=== PATIENT | female | born 1945 | race African-American/Black ===

== ENCOUNTER 2017-12-29 16:39 | Emergency (ER) | payer MEDICARE, BC ==
[~2017-12-29] VITALS: Ht 165.1 cm; Wt 107.0 kg
[~2017-12-29 16:39] MED LIST: AMLO10TA80 PO; BENA20TA3 PO; EDARBI PO; FEXO1TAB7 PO; FLUT1DIS3 IH; JANUMET XR PO; [UNRECOGNIZED DRUG - OTHER] PO; [UNRECOGNIZED DRUG - REMARK] NAS
[2017-12-29 18:44] LABS: BASOPHILS % 0.8 % (0.0-2.0); EOSINOPHILS % 1.6 % (0.0-5.0); HEMATOCRIT. 35.9 % (36.0-48.0); HEMOGLOBIN. 11.5 g/dL (12.0-16.0); LYMPHOCYTES % 20.3 % (20.0-50.0); MEAN CORPUSCULAR HEMOGLOBIN 27.9 pg (28.0-32.0); MEAN CORPUSCULAR VOLUME 87.1 fL (81.0-99.0); MEAN PLATELET VOLUME 8.1 fl (7.4-10.4); MONOCYTES % 8.4 % (2.0-8.0); NEUTROPHILS % 68.9 % (40.0-76.0); PLATELET 424 x1000/uL (130-400); RED BLOOD CELL COUNT 4.12 mill/uL (4.2-5.4); RED CELL DISTRIBUTION WIDTH 14.9 % (11.6-14.6)
[2017-12-29 18:49] LABS: PROTHROMBIN TIME 10.5 sec (9.4-11.6)
[2017-12-29 21:10] LABS: CREATINE KINASE 94 IU/L (26-192)
[2017-12-29] MEDS ORDERED: KETOROLAC 60MG/2ML VIAL IM ONE (21:15)
[2017-12-29 23:19] LABS: CLARITY URINE CLEAR (CLEAR); COLOR URINE YELLOW (YELLOW); KETONES URINE TRACE (NEGATIVE); LEUKOCYTE ESTERASE URINE TRACE (NEGATIVE); NITRITE URINE NEGATIVE (NEGATIVE); OCCULT BLOOD URINE NEGATIVE (NEGATIVE); PROTEIN URINE NEGATIVE (NEGATIVE); SPECIFIC GRAVITY URINE 1.025 (1.005-1.030); UROBILINOGEN URINE 0.2 E.U./dL (0.2-1.0)
[2017-12-30 00:50] VITALS: BP 134/66
== END 2017-12-30 01:15 | disposition home or self-care (01) ==
LOC: ER 17:38
DX: M79.1 Myalgia (principal); R39.11 Hesitancy of micturition; J45.909 Unspecified asthma, uncomplicated; E11.9 Type 2 diabetes mellitus without complications; I10 Essential (primary) hypertension; D72.829 Elevated white blood cell count, unspecified; Z88.6 Allergy status to analgesic agent; Z91.09 Other allergy status, other than to drugs and biological substances
CPT/HCPCS: 36415; 80048; 81003; 82550; 85025; 85610; 96372; 99284; J1885

== ENCOUNTER 2018-09-03 13:21 | Inpatient (IN) | payer BC, MEDICARE ==
[~2018-09-03] VITALS: Ht 165.1 cm; Wt 108.0 kg
[~2018-09-03 13:21] MED LIST changes: +BENA20TA10 PO; -BENA20TA3 PO
[2018-09-03] MEDS ORDERED: MORPHINE SULFATE 4 MG/ML CPJ (NOT FOR IM USE) IV STA (15:17)
[2018-09-03] MEDS ORDERED: ONDANSETRON HCL 4MG/2ML INJ IV STA (15:17)
[2018-09-03 16:27] LABS: BASOPHILS % 0.5 % (0.0-2.0); EOSINOPHILS % 1.3 % (0.0-5.0); HEMATOCRIT. 42.5 % (36.0-48.0); HEMOGLOBIN. 13.4 g/dL (12.0-16.0); LYMPHOCYTES % 23.4 % (20.0-50.0); MEAN CORPUSCULAR VOLUME 85.6 fL (81.0-99.0); MEAN PLATELET VOLUME 8.6 fl (7.4-10.4); MONOCYTES % 8.3 % (2.0-8.0); NEUTROPHILS % 66.5 % (40.0-76.0); PLATELET 405 x1000/uL (130-400); RED BLOOD CELL COUNT 4.97 mill/uL (4.2-5.4); RED CELL DISTRIBUTION WIDTH 16.8 % (11.6-14.6)
[2018-09-03 16:35] LABS: CHLORIDE 107 mEq/L (98-107)
[2018-09-03 16:36] LABS: PARTIAL THROMBOPLASTIN TIME 27.4 sec (23.4-31.0); PROTHROMBIN TIME 9.9 sec (9.1-11.1)
[2018-09-03 16:39] LABS: ETHANOL BLOOD < 10 mg/dL
[2018-09-03 18:05] LABS: T4 FREE 0.91 ng/dL (0.76-1.46)
[2018-09-03 23:30] VITALS: BP 161/62
[2018-09-04] VITALS: BP 161/62
[2018-09-04] MEDS ORDERED: MONT10TA24 PO (01:20)
[2018-09-04] MEDS ORDERED: AMLO-79 PO (01:20)
[2018-09-04] MEDS ORDERED: LORA10TA7 PO (01:20)
[2018-09-04] MEDS ORDERED: MECL-109 PO (01:20)
[2018-09-04] MEDS ORDERED: FLUC200T51 PO (01:20)
[2018-09-04] MEDS ORDERED: GLIM4TAB2 PO (01:20)
[2018-09-04] MEDS ORDERED: DULO60CA63 PO (01:20)
[2018-09-04] MEDS ORDERED: ATOR40TA70 PO (01:20)
[2018-09-04] MEDS ORDERED: SPIR25TA6 PO (01:20)
[2018-09-04] MEDS ORDERED: NYST15OI2 TP (01:20)
[2018-09-04] MEDS ORDERED: ISOS1TAB PO (01:20)
[2018-09-04] MEDS ORDERED: GABA-531 PO (01:20)
[2018-09-04] MEDS ORDERED: DEXTROSE 50% WATER 50ML SYRINGE IV PRN (03:15)
[2018-09-04 04:00] VITALS: BP 128/52
[2018-09-04] MEDS: BLOOD SUGAR DIAGNOSTIC STRIP TEST SCH ×4 (06:34→20:09)
[2018-09-04] MEDS: FLUTICASONE PROPIONATE 50MCG/SPRAY BOTTLE BOTHNSTRLS SCH ×3 (06:34→13:53)
[2018-09-04] MEDS: DEXT 5%/LACTATED RINGERS 1,000 ML IV SCH ×2 (06:35→15:42)
[2018-09-04 08:00] VITALS: BP 136/61
[2018-09-04] MEDS: INSULIN LISPRO 100 UNITS/ML SUBCUT SCH ×4 (08:10→21:00)
[2018-09-04] MEDS ORDERED: GABAPENTIN 300MG CAPSULE PO SCH (09:00)
[2018-09-04 09:31] LABS: BASOPHILS % 0.4 % (0.0-2.0); EOSINOPHILS % 2.4 % (0.0-5.0); HEMOGLOBIN. 12.5 g/dL (12.0-16.0); LYMPHOCYTES % 28.3 % (20.0-50.0); MEAN CORPUSCULAR HEMOGLOBIN 26.9 pg (28.0-32.0); MEAN CORPUSCULAR VOLUME 86.4 fL (81.0-99.0); MEAN PLATELET VOLUME 8.4 fl (7.4-10.4); MONOCYTES % 10.5 % (2.0-8.0); NEUTROPHILS % 58.4 % (40.0-76.0); PLATELET 351 x1000/uL (130-400); RED BLOOD CELL COUNT 4.63 mill/uL (4.2-5.4); RED CELL DISTRIBUTION WIDTH 16.6 % (11.6-14.6)
[2018-09-04 09:40] LABS: CHLORIDE 109 mEq/L (98-107)
[2018-09-04 12:00] VITALS: BP 126/51
[2018-09-04] MEDS ORDERED: ALBUTEROL (0.083%) 2.5MG/3ML NEB HHN PRN (13:00)
[2018-09-04] MEDS ORDERED: SODIUM CHLORIDE 45ML SPRAY NS PRN (13:00)
[2018-09-04] MEDS: LIDOCAINE 5% PATCH TOP SCH (13:52)
[2018-09-04 13:56] LABS: BG BASE EXCESS 0.8 mmol/L (-2.0-2.0); BG CARBOXYHEMOGLOBIN 0.6 % (0.5-1.5); BG DEOXYHEMOGLOBIN 8.3 % (0.0-5.0); BG FRACTION INSPIRED OXYGEN 21; BG HCO3 ACT 26.8 mmol/L (22.0-26.0); BG METHEMOGLOBIN 0.2 % (0.0-1.5); BG OXYGEN SATURATION 91.6 % (92.0-98.5); BG OXYHEMOGLOBIN 90.9 % (94.0-97.0); BG PCO2 48.3 mmHg (35.0-45.0); BG PH 7.362 (7.350-7.450); BG PO2 65.8 mmHg (75.0-100.0); BG SAMPLE SITE RIGHT RADIAL; BG TOTAL HEMOGLOBIN 12.7 g/dL (12.0-18.0); BG VENT MODE ROOM AIR
[2018-09-04] MEDS: OXYMETAZOLINE HCL NASAL SPRAY 15ML BOTHNSTRLS SCH ×2 (14:00→20:08)
[2018-09-04] MEDS: GABAPENTIN 400MG CAPSULE PO SCH ×2 (14:32→22:10)
[2018-09-04 16:00] VITALS: BP 146/59
[2018-09-04] MEDS: IPRATROPIUM/ALBUTEROL 0.5-3(2.5)MG/3ML NEB HHN SCH ×2 (16:33→22:01)
[2018-09-04 20:00] VITALS: BP 141/49
[2018-09-04] MEDS ORDERED: IPRATROPIUM/ALBUTEROL 0.5-3(2.5)MG/3ML NEB HHN PRN (21:00)
[2018-09-04] MEDS ORDERED: ENOXAPARIN 40MG/0.4ML SYR SUBCUT ONE (21:30)
[2018-09-04] MEDS: ENOXAPARIN 30MG/0.3ML SYR SUBCUT SCH (22:10)
[2018-09-05] VITALS: BP 150/47
[2018-09-05 04:00] VITALS: BP 142/54
[2018-09-05] MEDS: DEXT 5%/LACTATED RINGERS 1,000 ML IV SCH ×2 (04:48→16:28)
[2018-09-05] MEDS: BLOOD SUGAR DIAGNOSTIC STRIP TEST SCH ×4 (05:53→21:36)
[2018-09-05] MEDS: GABAPENTIN 400MG CAPSULE PO SCH ×3 (05:53→21:36)
[2018-09-05 07:27] LABS: CHLORIDE 107 mEq/L (98-107)
[2018-09-05 07:53] LABS: BASOPHILS % 0.3 % (0.0-2.0); EOSINOPHILS % 2.5 % (0.0-5.0); HEMATOCRIT. 38.7 % (36.0-48.0); HEMOGLOBIN. 12.1 g/dL (12.0-16.0); LYMPHOCYTES % 28.7 % (20.0-50.0); MEAN CORPUSCULAR HEMOGLOBIN 27.2 pg (28.0-32.0); MEAN CORPUSCULAR VOLUME 87.1 fL (81.0-99.0); MEAN PLATELET VOLUME 8.6 fl (7.4-10.4); MONOCYTES % 9.5 % (2.0-8.0); PLATELET 342 x1000/uL (130-400); RED BLOOD CELL COUNT 4.44 mill/uL (4.2-5.4); RED CELL DISTRIBUTION WIDTH 16.5 % (11.6-14.6)
[2018-09-05 08:00] VITALS: BP 152/75
[2018-09-05] MEDS: INSULIN LISPRO 100 UNITS/ML SUBCUT SCH ×4 (08:10→21:00)
[2018-09-05] MEDS: LINAGLIPTIN 5MG TABLET PO SCH (08:49)
[2018-09-05] MEDS: ENOXAPARIN 30MG/0.3ML SYR SUBCUT SCH ×2 (08:49→21:00)
[2018-09-05] MEDS ORDERED: ENOXAPARIN 40MG/0.4ML SYR SUBCUT SCH (09:00)
[2018-09-05] MEDS: IPRATROPIUM/ALBUTEROL 0.5-3(2.5)MG/3ML NEB HHN SCH ×5 (09:03→21:44)
[2018-09-05] MEDS: FLUTICASONE PROPIONATE 50MCG/SPRAY BOTTLE BOTHNSTRLS SCH (09:05)
[2018-09-05] MEDS: LIDOCAINE 5% PATCH TOP SCH ×2 (09:05→09:06)
[2018-09-05] MEDS: OXYMETAZOLINE HCL NASAL SPRAY 15ML BOTHNSTRLS SCH ×2 (09:05→21:36)
[2018-09-05] MEDS: TRAMADOL 50MG TABLET PO PRN (11:25)
[2018-09-05 12:00] VITALS: BP 148/75
[2018-09-05] MEDS: AMLODIPINE 5MG TABLET PO SCH ×2 (12:18→21:36)
[2018-09-05 16:00] VITALS: BP 155/72
[2018-09-05] MEDS ORDERED: HYDRALAZINE HCL 50MG TABLET PO NR (18:00)
[2018-09-05 20:00] VITALS: BP 160/56
[2018-09-05] MEDS: HYDRALAZINE HCL 50MG TABLET PO SCH (21:35)
[2018-09-06] VITALS (13 sets, daily range): BP systolic 124–204; BP diastolic 50–89
[2018-09-06] MEDS: TRAMADOL 50MG TABLET PO PRN (01:16)
[2018-09-06] MEDS: HYDRALAZINE HCL 50MG TABLET PO SCH (05:23)
[2018-09-06] MEDS: DEXT 5%/LACTATED RINGERS 1,000 ML IV SCH (05:23)
[2018-09-06] MEDS: GABAPENTIN 400MG CAPSULE PO SCH ×3 (05:23→21:14)
[2018-09-06] MEDS: BLOOD SUGAR DIAGNOSTIC STRIP TEST SCH ×4 (05:47→21:16)
[2018-09-06] MEDS: INSULIN LISPRO 100 UNITS/ML SUBCUT SCH ×4 (08:10→21:00)
[2018-09-06] MEDS: IPRATROPIUM/ALBUTEROL 0.5-3(2.5)MG/3ML NEB HHN SCH ×3 (08:38→21:18)
[2018-09-06] MEDS: ENOXAPARIN 30MG/0.3ML SYR SUBCUT SCH ×2 (09:00→21:14)
[2018-09-06] MEDS: LIDOCAINE 5% PATCH TOP SCH ×2 (09:00→09:49)
[2018-09-06] MEDS: LINAGLIPTIN 5MG TABLET PO SCH (09:45)
[2018-09-06] MEDS: AMLODIPINE 5MG TABLET PO SCH ×2 (09:45→21:15)
[2018-09-06] MEDS: FLUTICASONE PROPIONATE 50MCG/SPRAY BOTTLE BOTHNSTRLS SCH (09:50)
[2018-09-06] MEDS: OXYMETAZOLINE HCL NASAL SPRAY 15ML BOTHNSTRLS SCH ×2 (09:55→21:15)
[2018-09-06] MEDS ORDERED: SODIUM CHLORIDE 0.9% 10ML VIAL ONE (11:16)
[2018-09-06] MEDS ORDERED: SODIUM BICARBONATE 4% (2.4MEQ) 5ML VIAL IV ONE (11:17)
[2018-09-06] MEDS ORDERED: LIDOCAINE HCL 1% 20ML VIAL (Pyxis) INJ ONE (11:17)
[2018-09-06 11:29] LABS: BASOPHILS % 0.4 % (0.0-2.0); EOSINOPHILS % 2.7 % (0.0-5.0); HEMOGLOBIN. 12.1 g/dL (12.0-16.0); LYMPHOCYTES % 29.1 % (20.0-50.0); MEAN CORPUSCULAR HEMOGLOBIN 27.3 pg (28.0-32.0); MEAN CORPUSCULAR VOLUME 85.6 fL (81.0-99.0); MEAN PLATELET VOLUME 8.7 fl (7.4-10.4); MONOCYTES % 10.8 % (2.0-8.0); PLATELET 358 x1000/uL (130-400); RED BLOOD CELL COUNT 4.44 mill/uL (4.2-5.4); RED CELL DISTRIBUTION WIDTH 16.6 % (11.6-14.6)
[2018-09-06 11:34] LABS: CHLORIDE 105 mEq/L (98-107)
[2018-09-06] MEDS ORDERED: FENTANYL CITRATE/PF 50MCG/ML 2ML VIAL ONE (12:12)
[2018-09-06] MEDS ORDERED: FENTANYL CITRATE/PF 50MCG/ML 2ML VIAL IV ONE (12:30)
[2018-09-06] MEDS ORDERED: HYDRALAZINE HCL 100MG TABLET PO SCH (14:00)
[2018-09-06] MEDS: ISOSORB DINIT/HYDRALAZINE HCL 20/37.5MG TABLET PO SCH ×2 (14:01→21:15)
[2018-09-06] MEDS: LISINOPRIL 20MG TABLET PO SCH (21:15)
[2018-09-07] VITALS: BP 142/46
[2018-09-07 04:00] VITALS: BP 104/43
[2018-09-07] MEDS: DEXT 5%/LACTATED RINGERS 1,000 ML IV SCH (05:26)
[2018-09-07] MEDS: GABAPENTIN 400MG CAPSULE PO SCH ×2 (05:26→15:29)
[2018-09-07] MEDS: ISOSORB DINIT/HYDRALAZINE HCL 20/37.5MG TABLET PO SCH ×2 (05:27→15:29)
[2018-09-07] MEDS: TRAMADOL 50MG TABLET PO PRN (05:39)
[2018-09-07] MEDS: BLOOD SUGAR DIAGNOSTIC STRIP TEST SCH ×2 (06:54→12:40)
[2018-09-07 08:00] VITALS: BP 112/61
[2018-09-07] MEDS: INSULIN LISPRO 100 UNITS/ML SUBCUT SCH ×2 (08:10→13:10)
[2018-09-07] MEDS: LIDOCAINE 5% PATCH TOP SCH ×2 (09:00→09:05)
[2018-09-07] MEDS: LINAGLIPTIN 5MG TABLET PO SCH (09:02)
[2018-09-07] MEDS: AMLODIPINE 5MG TABLET PO SCH (09:03)
[2018-09-07] MEDS: LISINOPRIL 20MG TABLET PO SCH (09:03)
[2018-09-07] MEDS: ENOXAPARIN 30MG/0.3ML SYR SUBCUT SCH (09:04)
[2018-09-07] MEDS: FLUTICASONE PROPIONATE 50MCG/SPRAY BOTTLE BOTHNSTRLS SCH (09:04)
[2018-09-07] MEDS: IPRATROPIUM/ALBUTEROL 0.5-3(2.5)MG/3ML NEB HHN SCH ×2 (09:20→12:45)
[2018-09-07 09:36] VITALS: BP 112/61
[2018-09-07 12:00] VITALS: BP 149/54
[2018-09-07 13:28] LABS: BASOPHILS % 0.5 % (0.0-2.0); EOSINOPHILS % 2.4 % (0.0-5.0); HEMATOCRIT. 37.3 % (36.0-48.0); HEMOGLOBIN. 11.8 g/dL (12.0-16.0); LYMPHOCYTES % 25.6 % (20.0-50.0); MEAN CORPUSCULAR VOLUME 85.4 fL (81.0-99.0); MEAN PLATELET VOLUME 8.7 fl (7.4-10.4); MONOCYTES % 11.3 % (2.0-8.0); NEUTROPHILS % 60.2 % (40.0-76.0); PLATELET 350 x1000/uL (130-400); RED BLOOD CELL COUNT 4.36 mill/uL (4.2-5.4); RED CELL DISTRIBUTION WIDTH 16.1 % (11.6-14.6)
[2018-09-07 16:00] VITALS: BP 119/55
== END 2018-09-07 17:00 | disposition home or self-care (01) | DRG 477 ==
LOC: ER 13:53 → 7WST 19:47 → EDBEDREQTM 19:52 → EDBEDREQ 19:52 → ENRESERV 21:09
PROVIDERS: ADMIT Internal Medicine Geriatric Medicine; ATTEND Internal Medicine Geriatric Medicine
PROC: 5A09357 Assistance with Respiratory Ventilation, Less than 24 Consecutive Hours, Continuous Positive Airway Pressure (ICD-10-PCS; 2018-09-04)
PROC: 0Q903ZX Drainage of Lumbar Vertebra, Percutaneous Approach, Diagnostic (ICD-10-PCS; principal; 2018-09-06)
PROC: 5A09357 Assistance with Respiratory Ventilation, Less than 24 Consecutive Hours, Continuous Positive Airway Pressure (ICD-10-PCS; 2018-09-06)
PROC: 5A09357 Assistance with Respiratory Ventilation, Less than 24 Consecutive Hours, Continuous Positive Airway Pressure (ICD-10-PCS; 2018-09-07)
DX: M46.26 Osteomyelitis of vertebra, lumbar region (principal); G06.1 Intraspinal abscess and granuloma; M51.17 Intervertebral disc disorders with radiculopathy, lumbosacral region; E11.69 Type 2 diabetes mellitus with other specified complication; M48.061 Spinal stenosis, lumbar region without neurogenic claudication; G89.29 Other chronic pain; J44.9 Chronic obstructive pulmonary disease, unspecified; J31.0 Chronic rhinitis; I25.10 Atherosclerotic heart disease of native coronary artery without angina pectoris; E11.40 Type 2 diabetes mellitus with diabetic neuropathy, unspecified; E66.01 Morbid (severe) obesity due to excess calories; G47.33 Obstructive sleep apnea (adult) (pediatric); J32.9 Chronic sinusitis, unspecified; M46.46 Discitis, unspecified, lumbar region; E78.5 Hyperlipidemia, unspecified; I10 Essential (primary) hypertension; E89.0 Postprocedural hypothyroidism; K21.9 Gastro-esophageal reflux disease without esophagitis; Z82.49 Family history of ischemic heart disease and other diseases of the circulatory system; Z83.3 Family history of diabetes mellitus; Z86.73 Personal history of transient ischemic attack (TIA), and cerebral infarction without residual deficits; Z91.19 Patient's noncompliance with other medical treatment and regimen; Z88.8 Allergy status to other drugs, medicaments and biological substances; Z79.899 Other long term (current) drug therapy; Z68.39 Body mass index [BMI] 39.0-39.9, adult
CPT/HCPCS: 36415; 36600; 71045; 72158; 77002; 80048; 82375; 82805; 82962; 83605; 83880; 84145; 84439; 84443; 84481; 84484; 85651; 87075; 87102; 87116; 93005; 93306; 94640; 94660; 96374; 96375; 99152; 99153; 99285; A9577; J1650; J2270; J2405; J3010; J3490; J7050; J7121; J7620; G0500

== ENCOUNTER 2018-10-20 06:12 | Inpatient (IN) | payer BC ==
[2018-10-20] VITALS (35 sets, daily range): BP systolic 101–154; BP diastolic 51–94
[~2018-10-20] VITALS: Ht 167.6 cm; Wt 112.0 kg
[~2018-10-20 06:12] MED LIST changes: +AMLO-79 PO; +ATOR40TA70 PO; +DULO60CA63 PO; +FLUC200T51 PO; +GABA-531 PO; +GLIM4TAB2 PO; +ISOS1TAB PO; +LORA10TA7 PO; +MECL-109 PO; +MONT10TA24 PO; +NYST15OI2 TP; +SPIR25TA6 PO
[2018-10-20] MEDS ORDERED: GELATIN SPONGE,ABSORBABLE 12-7MM SPONGE ONE ×2 (06:26→08:10)
[2018-10-20] MEDS ORDERED: THROMBIN (BOVINE) 5000 UNITS/VIAL TOP ONE ×2 (06:26→08:11)
[2018-10-20] MEDS ORDERED: LIDOCAINE HCL/EPINEPHRINE 1%-EPI 1:100,000 20 ML VIAL ONE ×2 (06:27→08:11)
[2018-10-20] MEDS ORDERED: BACITRACIN 50,000 UNITS/VIAL ONE ×2 (06:27→08:11)
[2018-10-20] MEDS ORDERED: MIDAZOLAM HCL 2 MG/2 ML VIAL ONE (09:37)
[2018-10-20] MEDS ORDERED: FENTANYL CITRATE/PF 50MCG/ML 2ML VIAL ONE (09:37)
[2018-10-20] MEDS ORDERED: ASPI-1158 PO (09:43)
[2018-10-20 10:38] LABS: CLARITY URINE CLEAR (CLEAR); COLOR URINE YELLOW (YELLOW); KETONES URINE TRACE (NEGATIVE); LEUKOCYTE ESTERASE URINE NEGATIVE (NEGATIVE); NITRITE URINE NEGATIVE (NEGATIVE); OCCULT BLOOD URINE NEGATIVE (NEGATIVE); PH URINE 5.5 (4.5-8.0); PROTEIN URINE NEGATIVE (NEGATIVE)
[2018-10-20] MEDS ORDERED: HYDROMORPHONE HCL/PF 2MG/ML (OR) ONE (10:49)
[2018-10-20] MEDS ORDERED: MEPERIDINE HCL/PF 25MG/ML CPJ IV PRN (11:15)
[2018-10-20] MEDS ORDERED: LABETALOL HCL 5MG/ML VIAL 20ML IV PRN (11:15)
[2018-10-20] MEDS ORDERED: ONDANSETRON HCL 4MG/2ML INJ IV PRN ×3 (11:15→13:15)
[2018-10-20] MEDS ORDERED: HYDROMORPHONE HCL/PF 2MG/ML CPJ IV PRN (11:15)
[2018-10-20] MEDS ORDERED: NEOSTIGMINE METHYLSULFATE 1MG/ML 10 ML VIAL ONE (12:15)
[2018-10-20] MEDS ORDERED: GLYCOPYRROLATE 0.2 MG/ML 2ML VIAL ONE ×2 (12:16→12:22)
[2018-10-20] MEDS ORDERED: NICARDIPINE 100 MG in SODIUM CHLORIDE 0.9% 60 ML IV PRN ×2 (12:30→13:00)
[2018-10-20] MEDS ORDERED: HYDROCODONE/APAP 7.5/325MG 1 TAB TABLET PO PRN (12:30)
[2018-10-20] MEDS ORDERED: DEXTROSE 50% WATER 50ML SYRINGE IV PRN ×3 (12:45→13:15)
[2018-10-20] MEDS ORDERED: INSULIN LISPRO 100 UNITS/ML SUBCUT SCH (13:00)
[2018-10-20] MEDS ORDERED: BLOOD SUGAR DIAGNOSTIC STRIP TEST SCH (13:00)
[2018-10-20] MEDS ORDERED: ACETAMINOPHEN 325MG TABLET PO PRN (13:15)
[2018-10-20] MEDS: MORPHINE SULFATE 4 MG/ML CPJ (NOT FOR IM USE) IV PRN (13:26)
[2018-10-20] MEDS: DEXT 5%/LACTATED RINGERS 1,000 ML IV SCH (13:27)
[2018-10-20] MEDS ORDERED: ONDANSETRON INJ IV PRN (13:30)
[2018-10-20] MEDS ORDERED: NALOXONE INJ IV PRN (13:30)
[2018-10-20] MEDS ORDERED: DIPHENHYDRAMINE INJ IV PRN (13:30)
[2018-10-20] MEDS ORDERED: HYDROMORPHONE PCA 10MG/50ML IV PRN (14:00)
[2018-10-20] MEDS ORDERED: CEFAZOLIN SODIUM 1000MG/VIAL IV SCH (14:00)
[2018-10-20] MEDS: HYDRALAZINE HCL 50MG TABLET PO SCH ×2 (14:00→21:06)
[2018-10-20] MEDS: GABAPENTIN 100MG CAPSULE PO SCH ×2 (15:16→21:06)
[2018-10-20] MEDS: CEFAZOLIN 1000MG PREMIX 50 ML IV SCH ×2 (15:16→21:06)
[2018-10-20] MEDS: BLOOD SUGAR DIAGNOSTIC STRIP TEST SCH ×2 (16:30→20:55)
[2018-10-20] MEDS: IPRATROPIUM/ALBUTEROL 0.5-3(2.5)MG/3ML NEB HHN SCH ×2 (16:41→21:10)
[2018-10-20] MEDS: MONTELUKAST SODIUM 10MG TABLET PO SCH (17:41)
[2018-10-20] MEDS: INSULIN LISPRO 100 UNITS/ML SUBCUT SCH ×2 (17:42→20:54)
[2018-10-20] MEDS: ATORVASTATIN CALCIUM 40MG TABLET PO SCH (21:06)
[2018-10-21] VITALS (78 sets, daily range): BP systolic 99–165; BP diastolic 39–107
[2018-10-21] MEDS: IPRATROPIUM/ALBUTEROL 0.5-3(2.5)MG/3ML NEB HHN SCH ×6 (00:21→20:54)
[2018-10-21 05:37] LABS: BASOPHILS % 0.2 % (0.0-2.0); EOSINOPHILS % 0.4 % (0.0-5.0); HEMATOCRIT. 32.4 % (36.0-48.0); HEMOGLOBIN. 10.3 g/dL (12.0-16.0); LYMPHOCYTES % 16.1 % (20.0-50.0); MEAN CORPUSCULAR HEMOGLOBIN 27.4 pg (28.0-32.0); MEAN PLATELET VOLUME 8.4 fl (7.4-10.4); MONOCYTES % 12.8 % (2.0-8.0); NEUTROPHILS % 70.5 % (40.0-76.0); PLATELET 306 x1000/uL (130-400); RED BLOOD CELL COUNT 3.77 mill/uL (4.2-5.4)
[2018-10-21] MEDS: BLOOD SUGAR DIAGNOSTIC STRIP TEST SCH ×4 (06:37→21:14)
[2018-10-21] MEDS: INSULIN LISPRO 100 UNITS/ML SUBCUT SCH ×4 (06:38→21:00)
[2018-10-21] MEDS: HYDRALAZINE HCL 50MG TABLET PO SCH ×3 (06:45→21:29)
[2018-10-21] MEDS: PANTOPRAZOLE 40MG DR TABLET PO SCH (06:45)
[2018-10-21] MEDS: GABAPENTIN 100MG CAPSULE PO SCH ×3 (06:51→21:29)
[2018-10-21] MEDS: CEFAZOLIN 1000MG PREMIX 50 ML IV SCH ×2 (07:31→15:02)
[2018-10-21 08:20] LABS: BG BASE EXCESS 0.7 mmol/L (-2.0-2.0); BG CARBOXYHEMOGLOBIN 0.4 % (0.5-1.5); BG DEOXYHEMOGLOBIN 4.9 % (0.0-5.0); BG HCO3 ACT 26.4 mmol/L (22.0-26.0); BG METHEMOGLOBIN 0.1 % (0.0-1.5); BG OXYGEN SATURATION 95.1 % (92.0-98.5); BG OXYHEMOGLOBIN 94.6 % (94.0-97.0); BG PCO2 47.2 mmHg (35.0-45.0); BG PH 7.366 (7.350-7.450); BG PO2 80.3 mmHg (75.0-100.0); BG SAMPLE SITE RIGHT BRACHIAL; BG TOTAL HEMOGLOBIN 11.7 g/dL (12.0-18.0); BG VENT MODE NASAL CANNULA
[2018-10-21] MEDS: DOCUSATE SODIUM 100MG CAPSULE PO SCH ×2 (08:36→17:29)
[2018-10-21] MEDS: AMLODIPINE 10MG TABLET PO SCH (08:36)
[2018-10-21] MEDS: DEXT 5%/LACTATED RINGERS 1,000 ML IV SCH ×3 (09:33→15:03)
[2018-10-21] MEDS: LIDOCAINE 5% PATCH TOP SCH (12:25)
[2018-10-21] MEDS ORDERED: LIDOCAINE HCL/PF 1% 2ML VIAL ONE (14:31)
[2018-10-21] MEDS: MONTELUKAST SODIUM 10MG TABLET PO SCH (17:30)
[2018-10-21] MEDS: ATORVASTATIN CALCIUM 40MG TABLET PO SCH (21:29)
[2018-10-22] VITALS (42 sets, daily range): BP systolic 48–169; BP diastolic 31–97
[2018-10-22] MEDS: IPRATROPIUM/ALBUTEROL 0.5-3(2.5)MG/3ML NEB HHN SCH ×6 (00:33→23:54)
[2018-10-22] MEDS: CEFAZOLIN 1000MG PREMIX 50 ML IV SCH ×3 (02:35→17:13)
[2018-10-22 05:45] LABS: BASOPHILS % 0.3 % (0.0-2.0); EOSINOPHILS % 0.1 % (0.0-5.0); HEMATOCRIT. 29.5 % (36.0-48.0); HEMOGLOBIN. 9.3 g/dL (12.0-16.0); LYMPHOCYTES % 12.1 % (20.0-50.0); MEAN CORPUSCULAR HEMOGLOBIN 27.1 pg (28.0-32.0); MEAN CORPUSCULAR VOLUME 85.5 fL (81.0-99.0); MEAN PLATELET VOLUME 8.7 fl (7.4-10.4); MONOCYTES % 12.2 % (2.0-8.0); NEUTROPHILS % 75.3 % (40.0-76.0); PLATELET 292 x1000/uL (130-400); RED BLOOD CELL COUNT 3.45 mill/uL (4.2-5.4); RED CELL DISTRIBUTION WIDTH 14.9 % (11.6-14.6)
[2018-10-22 05:55] LABS: CHLORIDE 107 mEq/L (98-107)
[2018-10-22 06:07] LABS: PHOSPHORUS 3.2 mg/dL (2.5-4.9)
[2018-10-22] MEDS: INSULIN LISPRO 100 UNITS/ML SUBCUT SCH ×4 (07:00→22:26)
[2018-10-22] MEDS: HYDRALAZINE HCL 50MG TABLET PO SCH ×3 (07:08→21:22)
[2018-10-22] MEDS: GABAPENTIN 100MG CAPSULE PO SCH ×3 (07:08→21:22)
[2018-10-22] MEDS: PANTOPRAZOLE 40MG DR TABLET PO SCH (07:08)
[2018-10-22] MEDS: BLOOD SUGAR DIAGNOSTIC STRIP TEST SCH ×4 (07:08→21:00)
[2018-10-22] MEDS ORDERED: MAGNESIUM 2 G PREMIX 50 ML IV ONE (08:30)
[2018-10-22 09:26] LABS: TOTAL IRON BINDING CAPACITY 156 ug/dL (250-450)
[2018-10-22] MEDS ORDERED: MAGNESIUM 2 G PREMIX 50 ML IV SCH (10:00)
[2018-10-22] MEDS: DOCUSATE SODIUM 100MG CAPSULE PO SCH ×2 (10:08→17:13)
[2018-10-22] MEDS: LIDOCAINE 5% PATCH TOP SCH (10:08)
[2018-10-22] MEDS: AMLODIPINE 10MG TABLET PO SCH (10:08)
[2018-10-22] MEDS ORDERED: ACETAMINOPHEN WITH CODEINE 300/30MG TABLET PO PRN (12:00)
[2018-10-22] MEDS ORDERED: DEXT 5%/LACTATED RINGERS 1,000 ML IV SCH (12:00)
[2018-10-22] MEDS: DOCUSATE SODIUM 250MG CAPSULE PO SCH (12:27)
[2018-10-22] MEDS: MORPHINE SULFATE 4 MG/ML CPJ (NOT FOR IM USE) IV PRN ×2 (14:13→22:16)
[2018-10-22] MEDS: MONTELUKAST SODIUM 10MG TABLET PO SCH (17:13)
[2018-10-22] MEDS: ATORVASTATIN CALCIUM 40MG TABLET PO SCH (21:21)
[2018-10-23] VITALS: BP 137/49
[2018-10-23 04:00] VITALS: BP 125/40
[2018-10-23] MEDS: IPRATROPIUM/ALBUTEROL 0.5-3(2.5)MG/3ML NEB HHN SCH ×4 (04:21→21:08)
[2018-10-23] MEDS: GABAPENTIN 100MG CAPSULE PO SCH ×3 (06:16→21:42)
[2018-10-23] MEDS: HYDRALAZINE HCL 50MG TABLET PO SCH ×3 (06:17→21:42)
[2018-10-23] MEDS: PANTOPRAZOLE 40MG DR TABLET PO SCH (06:24)
[2018-10-23] MEDS: BLOOD SUGAR DIAGNOSTIC STRIP TEST SCH ×4 (06:24→20:48)
[2018-10-23 06:31] LABS: BASOPHILS % 0.4 % (0.0-2.0); EOSINOPHILS % 1.1 % (0.0-5.0); HEMATOCRIT. 28.1 % (36.0-48.0); HEMOGLOBIN. 8.8 g/dL (12.0-16.0); LYMPHOCYTES % 16.6 % (20.0-50.0); MEAN CORPUSCULAR HEMOGLOBIN 26.5 pg (28.0-32.0); MEAN CORPUSCULAR VOLUME 84.7 fL (81.0-99.0); MEAN PLATELET VOLUME 8.9 fl (7.4-10.4); MONOCYTES % 12.3 % (2.0-8.0); NEUTROPHILS % 69.6 % (40.0-76.0); PLATELET 306 x1000/uL (130-400); RED BLOOD CELL COUNT 3.31 mill/uL (4.2-5.4); RED CELL DISTRIBUTION WIDTH 14.7 % (11.6-14.6)
[2018-10-23] MEDS: INSULIN LISPRO 100 UNITS/ML SUBCUT SCH ×4 (06:52→20:47)
[2018-10-23 08:00] VITALS: BP 122/40
[2018-10-23 08:40] LABS: CHLORIDE 106 mEq/L (98-107)
[2018-10-23 09:00] VITALS: BP 154/51
[2018-10-23] MEDS: AMLODIPINE 10MG TABLET PO SCH (10:44)
[2018-10-23] MEDS: DOCUSATE SODIUM 250MG CAPSULE PO SCH (10:44)
[2018-10-23] MEDS: LIDOCAINE 5% PATCH TOP SCH (10:46)
[2018-10-23 16:00] VITALS: BP 148/43
[2018-10-23] MEDS: MONTELUKAST SODIUM 10MG TABLET PO SCH (18:09)
[2018-10-23 20:00] VITALS: BP 150/57
[2018-10-23] MEDS: ATORVASTATIN CALCIUM 40MG TABLET PO SCH (20:29)
[2018-10-23] MEDS: MORPHINE SULFATE 4 MG/ML CPJ (NOT FOR IM USE) IV PRN (20:30)
[2018-10-23] MEDS ORDERED: ONDANSETRON HCL 4MG/2ML INJ IV PRN (23:15)
[2018-10-24] VITALS: BP 120/46
[2018-10-24] MEDS: IPRATROPIUM/ALBUTEROL 0.5-3(2.5)MG/3ML NEB HHN SCH ×5 (01:00→23:43)
[2018-10-24 04:00] VITALS: BP 118/37
[2018-10-24] MEDS: GABAPENTIN 100MG CAPSULE PO SCH ×3 (06:48→22:14)
[2018-10-24] MEDS: PANTOPRAZOLE 40MG DR TABLET PO SCH (06:49)
[2018-10-24] MEDS: HYDRALAZINE HCL 50MG TABLET PO SCH ×3 (06:49→22:14)
[2018-10-24] MEDS: BLOOD SUGAR DIAGNOSTIC STRIP TEST SCH ×4 (06:58→21:00)
[2018-10-24 07:08] LABS: CHLORIDE 104 mEq/L (98-107)
[2018-10-24 07:32] LABS: BASOPHILS % 0.3 % (0.0-2.0); EOSINOPHILS % 2.3 % (0.0-5.0); HEMATOCRIT. 26.6 % (36.0-48.0); HEMOGLOBIN. 8.5 g/dL (12.0-16.0); LYMPHOCYTES % 19.4 % (20.0-50.0); MEAN CORPUSCULAR HEMOGLOBIN 27.1 pg (28.0-32.0); MEAN CORPUSCULAR VOLUME 84.7 fL (81.0-99.0); MEAN PLATELET VOLUME 8.9 fl (7.4-10.4); MONOCYTES % 10.6 % (2.0-8.0); NEUTROPHILS % 67.4 % (40.0-76.0); PLATELET 332 x1000/uL (130-400); RED BLOOD CELL COUNT 3.14 mill/uL (4.2-5.4); RED CELL DISTRIBUTION WIDTH 14.5 % (11.6-14.6)
[2018-10-24 07:38] LABS: PHOSPHORUS 4.3 mg/dL (2.5-4.9)
[2018-10-24] MEDS: INSULIN LISPRO 100 UNITS/ML SUBCUT SCH ×4 (07:50→21:00)
[2018-10-24 08:00] VITALS: BP 124/48
[2018-10-24] MEDS: DOCUSATE SODIUM 250MG CAPSULE PO SCH (08:36)
[2018-10-24] MEDS: AMLODIPINE 10MG TABLET PO SCH (08:36)
[2018-10-24] MEDS: LIDOCAINE 5% PATCH TOP SCH (11:21)
[2018-10-24 12:00] VITALS: BP 148/54
[2018-10-24 16:00] VITALS: BP 147/51
[2018-10-24] MEDS: MONTELUKAST SODIUM 10MG TABLET PO SCH (17:32)
[2018-10-24] MEDS: MORPHINE SULFATE 4 MG/ML CPJ (NOT FOR IM USE) IV PRN ×2 (17:32→22:14)
[2018-10-24 20:00] VITALS: BP 123/51
[2018-10-24] MEDS: ATORVASTATIN CALCIUM 40MG TABLET PO SCH (22:14)
[2018-10-25] VITALS: BP 128/66
[2018-10-25] MEDS: IPRATROPIUM/ALBUTEROL 0.5-3(2.5)MG/3ML NEB HHN SCH ×3 (03:43→13:03)
[2018-10-25 04:00] VITALS: BP 111/52
[2018-10-25] MEDS: MORPHINE SULFATE 4 MG/ML CPJ (NOT FOR IM USE) IV PRN ×2 (04:51→10:38)
[2018-10-25] MEDS: HYDRALAZINE HCL 50MG TABLET PO SCH ×2 (06:00→14:44)
[2018-10-25] MEDS: GABAPENTIN 100MG CAPSULE PO SCH ×2 (07:01→14:44)
[2018-10-25] MEDS: PANTOPRAZOLE 40MG DR TABLET PO SCH ×2 (07:05→09:03)
[2018-10-25 07:29] LABS: BASOPHILS % 0.5 % (0.0-2.0); EOSINOPHILS % 2.6 % (0.0-5.0); HEMATOCRIT. 29.4 % (36.0-48.0); HEMOGLOBIN. 9.2 g/dL (12.0-16.0); LYMPHOCYTES % 21.5 % (20.0-50.0); MEAN CORPUSCULAR HEMOGLOBIN 26.6 pg (28.0-32.0); MEAN CORPUSCULAR VOLUME 85.2 fL (81.0-99.0); MEAN PLATELET VOLUME 8.5 fl (7.4-10.4); MONOCYTES % 11.9 % (2.0-8.0); NEUTROPHILS % 63.5 % (40.0-76.0); PLATELET 384 x1000/uL (130-400); RED BLOOD CELL COUNT 3.45 mill/uL (4.2-5.4); RED CELL DISTRIBUTION WIDTH 14.6 % (11.6-14.6)
[2018-10-25] MEDS: INSULIN LISPRO 100 UNITS/ML SUBCUT SCH ×2 (07:50→12:39)
[2018-10-25] MEDS: BLOOD SUGAR DIAGNOSTIC STRIP TEST SCH ×2 (07:57→12:39)
[2018-10-25 08:00] VITALS: BP 128/46
[2018-10-25 08:28] LABS: CHLORIDE 102 mEq/L (98-107)
[2018-10-25] MEDS ORDERED: SORBITOL 70% SOLN 30ML PO NR (09:00)
[2018-10-25] MEDS ORDERED: NA PHOS,M-B/NA PHOS,DI-BA ENEMA 118ML PR NR (09:00)
[2018-10-25] MEDS: MONTELUKAST SODIUM 10MG TABLET PO SCH (09:03)
[2018-10-25] MEDS: DOCUSATE SODIUM 250MG CAPSULE PO SCH (09:03)
[2018-10-25] MEDS: AMLODIPINE 10MG TABLET PO SCH (09:03)
[2018-10-25] MEDS: LIDOCAINE 5% PATCH TOP SCH (11:42)
[2018-10-25 12:00] VITALS: BP 149/43
[2018-10-25 15:29] VITALS: BP 149/45
[2018-10-25] MEDS ORDERED: FLUTICASONE PROPIONATE 50MCG/SPRAY BOTTLE BOTHNSTRLS SCH (21:00)
[2018-10-26] MEDS ORDERED: FAMOTIDINE 20MG TABLET PO SCH (09:00)
== END 2018-10-25 16:35 | DRG 453 ==
LOC: OR 06:12 → MICUSO 06:13 → 6EST 10-22 13:16
PROVIDERS: ADMIT Internal Medicine Geriatric Medicine; ATTEND Neurological Surgery
PROC: 0SG0071 Fusion of Lumbar Vertebral Joint with Autologous Tissue Substitute, Posterior Approach, Posterior Column, Open Approach (ICD-10-PCS; principal; 2018-10-20)
PROC: 5A09357 Assistance with Respiratory Ventilation, Less than 24 Consecutive Hours, Continuous Positive Airway Pressure (ICD-10-PCS; 2018-10-20)
PROC: 0SG00AJ Fusion of Lumbar Vertebral Joint with Interbody Fusion Device, Posterior Approach, Anterior Column, Open Approach (ICD-10-PCS; 2018-10-20)
PROC: 5A09357 Assistance with Respiratory Ventilation, Less than 24 Consecutive Hours, Continuous Positive Airway Pressure (ICD-10-PCS; 2018-10-22)
PROC: 5A09357 Assistance with Respiratory Ventilation, Less than 24 Consecutive Hours, Continuous Positive Airway Pressure (ICD-10-PCS; 2018-10-24)
PROC: 5A09357 Assistance with Respiratory Ventilation, Less than 24 Consecutive Hours, Continuous Positive Airway Pressure (ICD-10-PCS; 2018-10-25)
DX: M47.16 Other spondylosis with myelopathy, lumbar region (principal); G82.50 Quadriplegia, unspecified; M51.06 Intervertebral disc disorders with myelopathy, lumbar region; E03.9 Hypothyroidism, unspecified; G47.33 Obstructive sleep apnea (adult) (pediatric); I10 Essential (primary) hypertension; E11.69 Type 2 diabetes mellitus with other specified complication; D63.8 Anemia in other chronic diseases classified elsewhere; E66.01 Morbid (severe) obesity due to excess calories; J44.9 Chronic obstructive pulmonary disease, unspecified; D72.823 Leukemoid reaction; M47.27 Other spondylosis with radiculopathy, lumbosacral region; M43.16 Spondylolisthesis, lumbar region; G89.29 Other chronic pain; E83.42 Hypomagnesemia; K59.00 Constipation, unspecified; M48.061 Spinal stenosis, lumbar region without neurogenic claudication; Z87.891 Personal history of nicotine dependence; Z68.39 Body mass index [BMI] 39.0-39.9, adult; Z88.6 Allergy status to analgesic agent
CPT/HCPCS: 36415; 36600; 71045; 72100; 76000; 80048; 82375; 82805; 82962; 83540; 83550; 83735; 84100; 86850; 86900; 87070; 87075; 88304; 88311; 92610; 94640; 94660; 95863; 95925; 95926; 95928; 95929; 97110; 97116; 97162; 97166; 97530; 97535; C1713; J0690; J1170; J1815; J2250; J2270; J2710; J3010; J3475; J3490; J7040; J7121; J7620

== ENCOUNTER 2018-10-25 16:48 | Inpatient (IN) | payer BC ==
[~2018-10-25] VITALS: Ht 167.6 cm; Wt 106.6 kg
[2018-10-25 16:48] VITALS: BP 137/62
[~2018-10-25 16:48] MED LIST changes: +ASPI-1158 PO
[2018-10-25] MEDS ORDERED: DEXTROSE 50% WATER 50ML SYRINGE IV PRN (18:00)
[2018-10-25] MEDS ORDERED: ONDANSETRON HCL 4MG/2ML INJ IV PRN (18:00)
[2018-10-25 20:00] VITALS: BP 137/62
[2018-10-25] MEDS: FLUTICASONE PROPIONATE 50MCG/SPRAY BOTTLE BOTHNSTRLS SCH (20:46)
[2018-10-25] MEDS: ACETAMINOPHEN WITH CODEINE 300/30MG TABLET PO PRN (20:47)
[2018-10-25] MEDS: ATORVASTATIN CALCIUM 40MG TABLET PO SCH (20:47)
[2018-10-25] MEDS: BLOOD SUGAR DIAGNOSTIC STRIP TEST SCH (20:48)
[2018-10-25] MEDS: GABAPENTIN 100MG CAPSULE PO SCH (20:48)
[2018-10-25] MEDS: HYDRALAZINE HCL 50MG TABLET PO SCH (20:48)
[2018-10-25] MEDS: INSULIN LISPRO 100 UNITS/ML SUBCUT SCH (20:51)
[2018-10-25] MEDS: IPRATROPIUM/ALBUTEROL 0.5-3(2.5)MG/3ML NEB HHN SCH (21:49)
[2018-10-26] MEDS: IPRATROPIUM/ALBUTEROL 0.5-3(2.5)MG/3ML NEB HHN SCH ×5 (01:07→21:08)
[2018-10-26] MEDS: GABAPENTIN 100MG CAPSULE PO SCH ×3 (05:41→21:58)
[2018-10-26] MEDS: HYDRALAZINE HCL 50MG TABLET PO SCH ×3 (05:41→21:58)
[2018-10-26] MEDS: ACETAMINOPHEN WITH CODEINE 300/30MG TABLET PO PRN ×3 (05:42→14:18)
[2018-10-26] MEDS: PANTOPRAZOLE 40MG DR TABLET PO SCH (05:48)
[2018-10-26] MEDS: BLOOD SUGAR DIAGNOSTIC STRIP TEST SCH ×4 (05:56→21:58)
[2018-10-26 08:00] VITALS: BP 117/41
[2018-10-26] MEDS: LIDOCAINE 5% PATCH TOP SCH ×2 (09:00→11:51)
[2018-10-26] MEDS: AMLODIPINE 10MG TABLET PO SCH (09:00)
[2018-10-26] MEDS: INSULIN LISPRO 100 UNITS/ML SUBCUT SCH ×4 (09:00→21:00)
[2018-10-26] MEDS: FLUTICASONE PROPIONATE 50MCG/SPRAY BOTTLE BOTHNSTRLS SCH ×2 (09:29→21:00)
[2018-10-26] MEDS: DOCUSATE SODIUM 250MG CAPSULE PO SCH (09:29)
[2018-10-26] MEDS: HYDROCODONE/ACETAMINOPHEN 5/325MG TABLET PO PRN (18:36)
[2018-10-26 20:00] VITALS: BP 141/56
[2018-10-26] MEDS ORDERED: NA PHOS,M-B/NA PHOS,DI-BA ENEMA 118ML PR PRN (21:15)
[2018-10-26] MEDS: ATORVASTATIN CALCIUM 40MG TABLET PO SCH (21:58)
[2018-10-26] MEDS: MONTELUKAST SODIUM 10MG TABLET PO SCH (21:58)
[2018-10-27] MEDS: HYDROCODONE/ACETAMINOPHEN 5/325MG TABLET PO PRN ×3 (00:04→10:37)
[2018-10-27] MEDS: IPRATROPIUM/ALBUTEROL 0.5-3(2.5)MG/3ML NEB HHN SCH ×5 (02:34→21:21)
[2018-10-27] MEDS: HYDRALAZINE HCL 50MG TABLET PO SCH ×3 (06:00→21:19)
[2018-10-27] MEDS: PANTOPRAZOLE 40MG DR TABLET PO SCH (06:07)
[2018-10-27] MEDS: GABAPENTIN 100MG CAPSULE PO SCH (06:07)
[2018-10-27] MEDS: BLOOD SUGAR DIAGNOSTIC STRIP TEST SCH ×4 (06:07→21:19)
[2018-10-27] MEDS: INSULIN LISPRO 100 UNITS/ML SUBCUT SCH ×4 (06:34→21:00)
[2018-10-27 06:37] LABS: BASOPHILS % 0.5 % (0.0-2.0); EOSINOPHILS % 1.4 % (0.0-5.0); HEMOGLOBIN. 9.1 g/dL (12.0-16.0); LYMPHOCYTES % 23.5 % (20.0-50.0); MEAN CORPUSCULAR HEMOGLOBIN 27.5 pg (28.0-32.0); MEAN CORPUSCULAR VOLUME 84.3 fL (81.0-99.0); MEAN PLATELET VOLUME 7.7 fl (7.4-10.4); MONOCYTES % 12.6 % (2.0-8.0); PLATELET 440 x1000/uL (130-400); RED BLOOD CELL COUNT 3.32 mill/uL (4.2-5.4); RED CELL DISTRIBUTION WIDTH 14.2 % (11.6-14.6)
[2018-10-27 06:40] LABS: CHLORIDE 102 mEq/L (98-107)
[2018-10-27 08:00] VITALS: BP 136/46
[2018-10-27] MEDS: DOCUSATE SODIUM 250MG CAPSULE PO SCH (08:28)
[2018-10-27] MEDS: AMLODIPINE 10MG TABLET PO SCH (08:28)
[2018-10-27] MEDS: FLUTICASONE PROPIONATE 50MCG/SPRAY BOTTLE BOTHNSTRLS SCH ×2 (08:29→21:18)
[2018-10-27] MEDS: LIDOCAINE 5% PATCH TOP SCH (08:29)
[2018-10-27] MEDS: GABAPENTIN 300MG CAPSULE PO SCH ×2 (14:24→21:19)
[2018-10-27] MEDS ORDERED: HYDROCODONE/ACETAMINOPHEN 10/325MG TABLET PO PRN (15:30)
[2018-10-27] MEDS: MONTELUKAST SODIUM 10MG TABLET PO SCH (17:48)
[2018-10-27 20:22] VITALS: BP 139/48
[2018-10-27] MEDS: ATORVASTATIN CALCIUM 40MG TABLET PO SCH (21:19)
[2018-10-28] MEDS: IPRATROPIUM/ALBUTEROL 0.5-3(2.5)MG/3ML NEB HHN SCH ×6 (00:44→21:09)
[2018-10-28] MEDS: BLOOD SUGAR DIAGNOSTIC STRIP TEST SCH ×4 (05:22→21:00)
[2018-10-28] MEDS: INSULIN LISPRO 100 UNITS/ML SUBCUT SCH ×4 (05:22→21:00)
[2018-10-28] MEDS: PANTOPRAZOLE 40MG DR TABLET PO SCH (05:52)
[2018-10-28] MEDS: ACETAMINOPHEN WITH CODEINE 300/30MG TABLET PO PRN ×2 (05:52→16:37)
[2018-10-28] MEDS: GABAPENTIN 300MG CAPSULE PO SCH (05:52)
[2018-10-28] MEDS: HYDRALAZINE HCL 50MG TABLET PO SCH ×3 (06:00→22:27)
[2018-10-28 08:00] VITALS: BP 102/38
[2018-10-28] MEDS: TRIAMCINOLONE ACETONIDE 0.1 % OINT 15GM TOP SCH ×3 (08:00→22:26)
[2018-10-28] MEDS: FLUTICASONE PROPIONATE 50MCG/SPRAY BOTTLE BOTHNSTRLS SCH ×2 (09:04→22:25)
[2018-10-28] MEDS: DOCUSATE SODIUM 250MG CAPSULE PO SCH (09:04)
[2018-10-28] MEDS: AMLODIPINE 10MG TABLET PO SCH (09:04)
[2018-10-28] MEDS: LORATADINE 10MG TABLET PO SCH (09:04)
[2018-10-28] MEDS: LIDOCAINE 5% PATCH TOP SCH (09:05)
[2018-10-28] MEDS: TRAMADOL HCL/ACETAMINOPHEN 37.5/325MG TABLET PO PRN ×2 (10:28→22:28)
[2018-10-28] MEDS: GABAPENTIN 400MG CAPSULE PO SCH ×2 (13:03→22:26)
[2018-10-28] MEDS: MONTELUKAST SODIUM 10MG TABLET PO SCH (16:35)
[2018-10-28 20:00] VITALS: BP 159/53
[2018-10-28] MEDS: ATORVASTATIN CALCIUM 40MG TABLET PO SCH (22:26)
[2018-10-29] MEDS: IPRATROPIUM/ALBUTEROL 0.5-3(2.5)MG/3ML NEB HHN SCH ×6 (00:15→20:57)
[2018-10-29] MEDS: ACETAMINOPHEN WITH CODEINE 300/30MG TABLET PO PRN (04:14)
[2018-10-29] MEDS: HYDRALAZINE HCL 50MG TABLET PO SCH ×3 (05:48→21:44)
[2018-10-29] MEDS: GABAPENTIN 400MG CAPSULE PO SCH ×3 (05:48→21:44)
[2018-10-29] MEDS: TRIAMCINOLONE ACETONIDE 0.1 % OINT 15GM TOP SCH ×3 (05:50→21:44)
[2018-10-29] MEDS: BLOOD SUGAR DIAGNOSTIC STRIP TEST SCH ×4 (05:52→22:52)
[2018-10-29 08:00] VITALS: BP 118/38
[2018-10-29] MEDS: TRAMADOL HCL/ACETAMINOPHEN 37.5/325MG TABLET PO PRN ×2 (08:42→14:57)
[2018-10-29] MEDS: LORATADINE 10MG TABLET PO SCH (08:43)
[2018-10-29] MEDS: DOCUSATE SODIUM 250MG CAPSULE PO SCH (08:43)
[2018-10-29] MEDS: AMLODIPINE 10MG TABLET PO SCH (08:43)
[2018-10-29] MEDS: FAMOTIDINE 20MG TABLET PO SCH ×2 (08:43→21:43)
[2018-10-29] MEDS: LIDOCAINE 5% PATCH TOP SCH (08:44)
[2018-10-29] MEDS: FLUTICASONE PROPIONATE 50MCG/SPRAY BOTTLE BOTHNSTRLS SCH ×2 (08:44→21:43)
[2018-10-29] MEDS: INSULIN LISPRO 100 UNITS/ML SUBCUT SCH ×4 (08:45→22:55)
[2018-10-29 09:09] LABS: BASOPHILS % 0.3 % (0.0-2.0); EOSINOPHILS % 1.4 % (0.0-5.0); HEMATOCRIT. 28.3 % (36.0-48.0); HEMOGLOBIN. 8.8 g/dL (12.0-16.0); LYMPHOCYTES % 22.4 % (20.0-50.0); MEAN CORPUSCULAR HEMOGLOBIN 26.7 pg (28.0-32.0); MEAN CORPUSCULAR VOLUME 85.4 fL (81.0-99.0); MEAN PLATELET VOLUME 7.8 fl (7.4-10.4); MONOCYTES % 11.8 % (2.0-8.0); NEUTROPHILS % 64.1 % (40.0-76.0); PLATELET 505 x1000/uL (130-400); RED BLOOD CELL COUNT 3.32 mill/uL (4.2-5.4); RED CELL DISTRIBUTION WIDTH 14.3 % (11.6-14.6)
[2018-10-29 09:11] LABS: CHLORIDE 103 mEq/L (98-107)
[2018-10-29 10:50] LABS: TOTAL IRON BINDING CAPACITY 246 ug/dL (250-450)
[2018-10-29] MEDS: MULTIVITAMINS,THER W-MINERALS TABLET PO SCH (13:48)
[2018-10-29] MEDS: MONTELUKAST SODIUM 10MG TABLET PO SCH (16:24)
[2018-10-29] MEDS ORDERED: SORBITOL 70% SOLN 30ML PO PRN (17:00)
[2018-10-29 20:00] VITALS: BP 137/64
[2018-10-29] MEDS: ATORVASTATIN CALCIUM 40MG TABLET PO SCH (21:43)
[2018-10-30] MEDS: IPRATROPIUM/ALBUTEROL 0.5-3(2.5)MG/3ML NEB HHN SCH ×6 (01:13→20:52)
[2018-10-30] MEDS: TRIAMCINOLONE ACETONIDE 0.1 % OINT 15GM TOP SCH ×3 (06:00→21:50)
[2018-10-30] MEDS: HYDRALAZINE HCL 50MG TABLET PO SCH ×3 (06:12→21:42)
[2018-10-30] MEDS: BLOOD SUGAR DIAGNOSTIC STRIP TEST SCH ×4 (06:13→21:43)
[2018-10-30] MEDS: GABAPENTIN 400MG CAPSULE PO SCH ×3 (06:13→21:41)
[2018-10-30 08:00] VITALS: BP 133/55
[2018-10-30] MEDS: FAMOTIDINE 20MG TABLET PO SCH ×2 (08:56→21:41)
[2018-10-30] MEDS: MULTIVITAMINS,THER W-MINERALS TABLET PO SCH (08:56)
[2018-10-30] MEDS: AMLODIPINE 10MG TABLET PO SCH (08:56)
[2018-10-30] MEDS: DOCUSATE SODIUM 250MG CAPSULE PO SCH (08:56)
[2018-10-30] MEDS: LORATADINE 10MG TABLET PO SCH (08:56)
[2018-10-30] MEDS: TRAMADOL HCL/ACETAMINOPHEN 37.5/325MG TABLET PO PRN ×2 (08:58→22:19)
[2018-10-30] MEDS: INSULIN LISPRO 100 UNITS/ML SUBCUT SCH ×4 (09:00→22:24)
[2018-10-30] MEDS: FLUTICASONE PROPIONATE 50MCG/SPRAY BOTTLE BOTHNSTRLS SCH (09:00)
[2018-10-30] MEDS: LIDOCAINE 5% PATCH TOP SCH (09:01)
[2018-10-30 14:00] VITALS: BP 137/48
[2018-10-30] MEDS: SORBITOL 70% SOLN 30ML PO PRN (17:16)
[2018-10-30] MEDS: MONTELUKAST SODIUM 10MG TABLET PO SCH (17:16)
[2018-10-30 20:00] VITALS: BP 131/40
[2018-10-30] MEDS: ATORVASTATIN CALCIUM 40MG TABLET PO SCH (21:41)
[2018-10-31] MEDS: IPRATROPIUM/ALBUTEROL 0.5-3(2.5)MG/3ML NEB HHN SCH ×6 (00:08→21:59)
[2018-10-31 05:57] LABS: CHLORIDE 103 mEq/L (98-107)
[2018-10-31] MEDS: TRIAMCINOLONE ACETONIDE 0.1 % OINT 15GM TOP SCH ×3 (06:00→22:00)
[2018-10-31 06:18] LABS: BASOPHILS % 0.8 % (0.0-2.0); EOSINOPHILS % 1.7 % (0.0-5.0); HEMATOCRIT. 27.6 % (36.0-48.0); HEMOGLOBIN. 8.7 g/dL (12.0-16.0); LYMPHOCYTES % 23.3 % (20.0-50.0); MEAN CORPUSCULAR HEMOGLOBIN 26.9 pg (28.0-32.0); MEAN CORPUSCULAR VOLUME 85.2 fL (81.0-99.0); MEAN PLATELET VOLUME 7.8 fl (7.4-10.4); MONOCYTES % 10.9 % (2.0-8.0); NEUTROPHILS % 63.3 % (40.0-76.0); PLATELET 589 x1000/uL (130-400); RED BLOOD CELL COUNT 3.25 mill/uL (4.2-5.4); RED CELL DISTRIBUTION WIDTH 14.8 % (11.6-14.6)
[2018-10-31] MEDS: BLOOD SUGAR DIAGNOSTIC STRIP TEST SCH ×4 (06:54→21:30)
[2018-10-31] MEDS: GABAPENTIN 400MG CAPSULE PO SCH ×3 (06:54→21:33)
[2018-10-31] MEDS: HYDRALAZINE HCL 50MG TABLET PO SCH ×3 (06:55→21:34)
[2018-10-31] MEDS: TRAMADOL HCL/ACETAMINOPHEN 37.5/325MG TABLET PO PRN ×3 (06:56→21:45)
[2018-10-31] MEDS: INSULIN LISPRO 100 UNITS/ML SUBCUT SCH ×4 (07:06→21:00)
[2018-10-31 08:00] VITALS: BP 141/49
[2018-10-31] MEDS: AMLODIPINE 10MG TABLET PO SCH (09:58)
[2018-10-31] MEDS: DOCUSATE SODIUM 250MG CAPSULE PO SCH (09:58)
[2018-10-31] MEDS: LORATADINE 10MG TABLET PO SCH (09:58)
[2018-10-31] MEDS: FAMOTIDINE 20MG TABLET PO SCH ×2 (09:58→21:33)
[2018-10-31] MEDS: MULTIVITAMINS,THER W-MINERALS TABLET PO SCH (09:58)
[2018-10-31] MEDS: LIDOCAINE 5% PATCH TOP SCH (10:00)
[2018-10-31 14:54] LABS: CLARITY URINE CLEAR (CLEAR); COLOR URINE YELLOW (YELLOW); KETONES URINE NEGATIVE (NEGATIVE); LEUKOCYTE ESTERASE URINE NEGATIVE (NEGATIVE); NITRITE URINE NEGATIVE (NEGATIVE); OCCULT BLOOD URINE NEGATIVE (NEGATIVE); PROTEIN URINE NEGATIVE (NEGATIVE); SPECIFIC GRAVITY URINE 1.007 (1.005-1.030); UROBILINOGEN URINE 0.2 E.U./dL (0.2-1.0)
[2018-10-31 15:28] VITALS: BP 106/46
[2018-10-31] MEDS: MONTELUKAST SODIUM 10MG TABLET PO SCH (16:58)
[2018-10-31 20:00] VITALS: BP 137/46
[2018-10-31] MEDS: ATORVASTATIN CALCIUM 40MG TABLET PO SCH (21:33)
[2018-11-01] MEDS: IPRATROPIUM/ALBUTEROL 0.5-3(2.5)MG/3ML NEB HHN SCH ×6 (02:00→20:54)
[2018-11-01] MEDS: GABAPENTIN 400MG CAPSULE PO SCH ×3 (05:48→21:40)
[2018-11-01] MEDS: HYDRALAZINE HCL 50MG TABLET PO SCH ×3 (05:52→21:40)
[2018-11-01] MEDS: TRAMADOL HCL/ACETAMINOPHEN 37.5/325MG TABLET PO PRN ×2 (05:58→08:20)
[2018-11-01] MEDS: TRIAMCINOLONE ACETONIDE 0.1 % OINT 15GM TOP SCH ×3 (06:00→21:41)
[2018-11-01] MEDS: BLOOD SUGAR DIAGNOSTIC STRIP TEST SCH ×4 (06:24→20:30)
[2018-11-01 07:30] VITALS: BP 146/46
[2018-11-01 07:43] LABS: BASOPHILS % 0.5 % (0.0-2.0); HEMOGLOBIN. 9.1 g/dL (12.0-16.0); LYMPHOCYTES % 20.9 % (20.0-50.0); MEAN CORPUSCULAR HEMOGLOBIN 27.2 pg (28.0-32.0); MEAN PLATELET VOLUME 7.4 fl (7.4-10.4); NEUTROPHILS % 65.6 % (40.0-76.0); PLATELET 642 x1000/uL (130-400); RED BLOOD CELL COUNT 3.33 mill/uL (4.2-5.4); RED CELL DISTRIBUTION WIDTH 14.1 % (11.6-14.6)
[2018-11-01] MEDS: LORATADINE 10MG TABLET PO SCH (08:17)
[2018-11-01] MEDS: DOCUSATE SODIUM 250MG CAPSULE PO SCH (08:17)
[2018-11-01] MEDS: MULTIVITAMINS,THER W-MINERALS TABLET PO SCH (08:17)
[2018-11-01] MEDS: AMLODIPINE 10MG TABLET PO SCH (08:18)
[2018-11-01] MEDS: LIDOCAINE 5% PATCH TOP SCH (08:21)
[2018-11-01 08:59] LABS: CHLORIDE 103 mEq/L (98-107)
[2018-11-01] MEDS: INSULIN LISPRO 100 UNITS/ML SUBCUT SCH ×5 (09:00→20:30)
[2018-11-01] MEDS: FAMOTIDINE 20MG TABLET PO SCH ×2 (10:38→20:36)
[2018-11-01 13:00] VITALS: BP 148/45
[2018-11-01] MEDS: ACETAMINOPHEN 650MG/20.3ML UDC PO PRN (15:10)
[2018-11-01] MEDS: MONTELUKAST SODIUM 10MG TABLET PO SCH (16:11)
[2018-11-01 20:00] VITALS: BP 136/51
[2018-11-01] MEDS: ATORVASTATIN CALCIUM 40MG TABLET PO SCH (20:36)
[2018-11-02] MEDS: IPRATROPIUM/ALBUTEROL 0.5-3(2.5)MG/3ML NEB HHN SCH ×6 (00:37→20:55)
[2018-11-02] MEDS: BLOOD SUGAR DIAGNOSTIC STRIP TEST SCH ×4 (05:44→22:00)
[2018-11-02] MEDS: INSULIN LISPRO 100 UNITS/ML SUBCUT SCH ×4 (05:45→22:00)
[2018-11-02] MEDS: GABAPENTIN 400MG CAPSULE PO SCH ×3 (05:55→22:46)
[2018-11-02] MEDS: HYDRALAZINE HCL 50MG TABLET PO SCH ×3 (05:55→22:46)
[2018-11-02] MEDS: TRIAMCINOLONE ACETONIDE 0.1 % OINT 15GM TOP SCH ×3 (06:07→22:00)
[2018-11-02 08:00] VITALS: BP 134/42
[2018-11-02] MEDS: MULTIVITAMINS,THER W-MINERALS TABLET PO SCH (08:19)
[2018-11-02] MEDS: FAMOTIDINE 20MG TABLET PO SCH ×2 (08:19→22:00)
[2018-11-02] MEDS: DOCUSATE SODIUM 250MG CAPSULE PO SCH (08:19)
[2018-11-02] MEDS: LORATADINE 10MG TABLET PO SCH (08:19)
[2018-11-02] MEDS: AMLODIPINE 10MG TABLET PO SCH (08:20)
[2018-11-02] MEDS: LIDOCAINE 5% PATCH TOP SCH (08:21)
[2018-11-02 09:40] VITALS: BP 154/55
[2018-11-02] MEDS: TRAMADOL HCL/ACETAMINOPHEN 37.5/325MG TABLET PO PRN (10:17)
[2018-11-02 12:46] VITALS: BP 156/68
[2018-11-02] MEDS: MONTELUKAST SODIUM 10MG TABLET PO SCH (16:46)
[2018-11-02 20:00] VITALS: BP 138/46
[2018-11-02] MEDS: ATORVASTATIN CALCIUM 40MG TABLET PO SCH (22:00)
[2018-11-03] MEDS: IPRATROPIUM/ALBUTEROL 0.5-3(2.5)MG/3ML NEB HHN SCH ×6 (00:02→23:43)
[2018-11-03] MEDS: TRIAMCINOLONE ACETONIDE 0.1 % OINT 15GM TOP SCH ×3 (06:00→22:00)
[2018-11-03] MEDS: GABAPENTIN 400MG CAPSULE PO SCH ×3 (06:44→22:11)
[2018-11-03] MEDS: HYDRALAZINE HCL 50MG TABLET PO SCH ×3 (06:45→22:11)
[2018-11-03] MEDS: BLOOD SUGAR DIAGNOSTIC STRIP TEST SCH ×4 (06:48→20:12)
[2018-11-03 07:11] LABS: PHOSPHORUS 3.9 mg/dL (2.5-4.9)
[2018-11-03 07:16] LABS: CREATINE KINASE MB FRACTION < 1.0 ng/mL (0.5-3.6)
[2018-11-03 08:16] VITALS: BP 134/50
[2018-11-03] MEDS: INSULIN LISPRO 100 UNITS/ML SUBCUT SCH ×4 (08:23→20:21)
[2018-11-03] MEDS: FAMOTIDINE 20MG TABLET PO SCH ×2 (09:10→20:09)
[2018-11-03] MEDS: AMLODIPINE 10MG TABLET PO SCH (09:10)
[2018-11-03] MEDS: DOCUSATE SODIUM 250MG CAPSULE PO SCH (09:10)
[2018-11-03] MEDS: MULTIVITAMINS,THER W-MINERALS TABLET PO SCH (09:11)
[2018-11-03] MEDS: LORATADINE 10MG TABLET PO SCH (09:11)
[2018-11-03] MEDS: LIDOCAINE 5% PATCH TOP SCH (09:12)
[2018-11-03] MEDS: SORBITOL 70% SOLN 30ML PO PRN (10:57)
[2018-11-03] MEDS ORDERED: BISACODYL 5MG TABLET PO PRN (13:45)
[2018-11-03] MEDS: MONTELUKAST SODIUM 10MG TABLET PO SCH (18:24)
[2018-11-03 20:00] VITALS: BP 132/50
[2018-11-03] MEDS: ATORVASTATIN CALCIUM 40MG TABLET PO SCH (20:10)
[2018-11-03] MEDS: TRAMADOL HCL/ACETAMINOPHEN 37.5/325MG TABLET PO PRN (20:12)
[2018-11-04] MEDS: IPRATROPIUM/ALBUTEROL 0.5-3(2.5)MG/3ML NEB HHN SCH ×4 (05:07→21:07)
[2018-11-04] MEDS: TRIAMCINOLONE ACETONIDE 0.1 % OINT 15GM TOP SCH ×3 (06:00→22:18)
[2018-11-04] MEDS: BLOOD SUGAR DIAGNOSTIC STRIP TEST SCH ×4 (06:54→21:00)
[2018-11-04] MEDS: GABAPENTIN 400MG CAPSULE PO SCH ×3 (06:54→21:37)
[2018-11-04] MEDS: HYDRALAZINE HCL 50MG TABLET PO SCH ×3 (06:57→23:05)
[2018-11-04] MEDS: INSULIN LISPRO 100 UNITS/ML SUBCUT SCH ×4 (07:09→21:00)
[2018-11-04 08:08] VITALS: BP 138/39
[2018-11-04] MEDS: LIDOCAINE 5% PATCH TOP SCH (09:00)
[2018-11-04] MEDS: DOCUSATE SODIUM 250MG CAPSULE PO SCH (09:09)
[2018-11-04] MEDS: MULTIVITAMINS,THER W-MINERALS TABLET PO SCH (09:09)
[2018-11-04] MEDS: FAMOTIDINE 20MG TABLET PO SCH ×2 (09:09→21:37)
[2018-11-04] MEDS: AMLODIPINE 10MG TABLET PO SCH (09:09)
[2018-11-04] MEDS: LORATADINE 10MG TABLET PO SCH (09:10)
[2018-11-04] MEDS: ACETAMINOPHEN 650MG/20.3ML UDC PO PRN ×2 (09:11→17:30)
[2018-11-04] MEDS: MONTELUKAST SODIUM 10MG TABLET PO SCH (17:30)
[2018-11-04 20:00] VITALS: BP 135/59
[2018-11-04] MEDS: ATORVASTATIN CALCIUM 40MG TABLET PO SCH (21:37)
[2018-11-04] MEDS: TRAMADOL HCL/ACETAMINOPHEN 37.5/325MG TABLET PO PRN (23:08)
[2018-11-05] MEDS: IPRATROPIUM/ALBUTEROL 0.5-3(2.5)MG/3ML NEB HHN SCH ×3 (00:25→09:49)
[2018-11-05] MEDS: HYDRALAZINE HCL 50MG TABLET PO SCH ×2 (06:00→13:47)
[2018-11-05] MEDS: GABAPENTIN 400MG CAPSULE PO SCH (06:42)
[2018-11-05] MEDS: TRIAMCINOLONE ACETONIDE 0.1 % OINT 15GM TOP SCH ×2 (06:42→13:48)
[2018-11-05 08:00] VITALS: BP 144/51
[2018-11-05] MEDS: INSULIN LISPRO 100 UNITS/ML SUBCUT SCH ×2 (08:46→12:17)
[2018-11-05] MEDS: DOCUSATE SODIUM 250MG CAPSULE PO SCH (08:46)
[2018-11-05] MEDS: LORATADINE 10MG TABLET PO SCH (08:46)
[2018-11-05] MEDS: FAMOTIDINE 20MG TABLET PO SCH (08:46)
[2018-11-05] MEDS: AMLODIPINE 10MG TABLET PO SCH (08:46)
[2018-11-05] MEDS: MULTIVITAMINS,THER W-MINERALS TABLET PO SCH (08:46)
[2018-11-05] MEDS: LIDOCAINE 5% PATCH TOP SCH (08:48)
[2018-11-05] MEDS: BLOOD SUGAR DIAGNOSTIC STRIP TEST SCH (11:15)
[2018-11-05 11:57] VITALS: BP 144/51
[2018-11-05] MEDS ORDERED: LIDOCAINE HCL 4% CREAM 76GM TUBE TP SCH (12:00)
[2018-11-05] MEDS ORDERED: GABAPENTIN 400MG CAPSULE PO SCH (13:15)
[2018-11-05] MEDS ORDERED: PREGABALIN 75MG CAPSULE PO SCH ×2 (13:30→21:00)
== END 2018-11-05 15:26 | disposition home health service (06) | DRG 552 ==
PROVIDERS: ADMIT Psychiatry & Neurology Neurology; ATTEND Internal Medicine Geriatric Medicine
DX: M48.061 Spinal stenosis, lumbar region without neurogenic claudication (principal); G82.20 Paraplegia, unspecified; G47.33 Obstructive sleep apnea (adult) (pediatric); E11.69 Type 2 diabetes mellitus with other specified complication; E03.9 Hypothyroidism, unspecified; E66.01 Morbid (severe) obesity due to excess calories; E83.42 Hypomagnesemia; K59.00 Constipation, unspecified; D63.8 Anemia in other chronic diseases classified elsewhere; K21.9 Gastro-esophageal reflux disease without esophagitis; F06.31 Mood disorder due to known physiological condition with depressive features; I10 Essential (primary) hypertension; G89.29 Other chronic pain; M51.17 Intervertebral disc disorders with radiculopathy, lumbosacral region; D72.829 Elevated white blood cell count, unspecified; Z68.37 Body mass index [BMI] 37.0-37.9, adult; Z79.82 Long term (current) use of aspirin; Z79.84 Long term (current) use of oral hypoglycemic drugs; Z79.899 Other long term (current) drug therapy
CPT/HCPCS: 36415; 80048; 82553; 82962; 83540; 83550; 83735; 84100; 84443; 92523; 93970; 94640; 94660; 97110; 97112; 97116; 97127; 97150; 97162; 97166; 97530; 97535; J1815; J7620